=== PATIENT | female | born 1950 | race Caucasian/White ===

== ENCOUNTER → 2023-04-17 | Day surgery (SDC) | payer MEDICARE, OTHER ==
[~2023-04-17] VITALS: Ht 160 cm; Wt 63.5 kg
[~2023-04-17] MED LIST: AMLO10TA80 PO; BALANCED SALT IRRIG SOLN COMB1 500ML OP NR; CYCLOPENTOLATE HCL 1% OPHTH DROPS 2ML RIGHTEYE SCH; FENTANYL CITRATE/PF 50MCG/ML 2ML VIAL ONE; HYALURONATE SODIUM 10 MG/ML 0.55ML SYRINGE IO ONE; LACTATED RINGERS 1,000 ML IV SCH; MIDAZOLAM HCL 2 MG/2 ML VIAL ONE; PHENYLEPHRINE HCL 10% OPHTH DROPS 5ML RIGHTEYE SCH; TROPICAMIDE 1% OPHTH DROPS 15ML RIGHTEYE SCH; TRYPAN BLUE 0.5 ML DISP.SYRIN IO ONE
== END | disposition home or self-care (01) ==
LOC: OR 06:15
PROVIDERS: ATTEND Ophthalmology
DX: H25.89 Other age-related cataract (principal); I10 Essential (primary) hypertension; Z79.899 Other long term (current) drug therapy; Z98.890 Other specified postprocedural states; Z88.8 Allergy status to other drugs, medicaments and biological substances
CPT/HCPCS: 66984; J3010; Q9957; J2250; J3490; A4217; Z7610 ×18; V2632

== ENCOUNTER → 2025-01-20 | Day surgery (SDC) | payer MEDICARE, MEDICAID ==
[~2025-01-20] VITALS: Ht 162.6 cm; Wt 64.9 kg
[~2025-01-20] MED LIST changes: +ACETYLCHOLINE CHLORIDE INTRAOCULAR SOLUTION 1:100 ELECTROLYTE DILUENT IO ONE; +ASPI-1497 PO; -BALANCED SALT IRRIG SOLN COMB1 500ML OP NR; +BALANCED SALT IRRIG SOLN COMB1 500ML OP SCH; +CALC-769 PO; +CETI10CA2 PO; +CYCLOPENTOLATE HCL 1% OPHTH DROPS 2ML LEFTEYE NR; -CYCLOPENTOLATE HCL 1% OPHTH DROPS 2ML RIGHTEYE SCH; +EZET10TA81 PO; +FAMO40TA70 PO; +FENTANYL CITRATE/PF 50MCG/ML 2ML VIAL IV PRN; +FLUT9.9S BOTHNSTRLS; -HYALURONATE SODIUM 10 MG/ML 0.55ML SYRINGE IO ONE; +HYALURONATE SODIUM 10MG/ML 0.55ML SYRINGE IO ONE; -LACTATED RINGERS 1,000 ML IV SCH; +METF-414 PO; -MIDAZOLAM HCL 2 MG/2 ML VIAL ONE; +ONDANSETRON HCL 4MG/2ML INJ IV PRN; +OXYB-52 PO; +PHENYLEPHRINE HCL 10% OPHTH DROPS 5ML LEFTEYE NR; -PHENYLEPHRINE HCL 10% OPHTH DROPS 5ML RIGHTEYE SCH; +ROSU40TA PO; +TROPICAMIDE 1% OPHTH DROPS 15ML LEFTEYE NR; -TROPICAMIDE 1% OPHTH DROPS 15ML RIGHTEYE SCH
[2025-01-20] MEDS: SODIUM CHLORIDE 0.9% 1,000 ML IV SCH (06:44)
== END | disposition home or self-care (01) ==
LOC: OR 05:33
PROVIDERS: ATTEND Ophthalmology
DX: E11.36 Type 2 diabetes mellitus with diabetic cataract (principal); H25.89 Other age-related cataract; I10 Essential (primary) hypertension; E78.5 Hyperlipidemia, unspecified; Z79.82 Long term (current) use of aspirin; Z79.84 Long term (current) use of oral hypoglycemic drugs; Z79.899 Other long term (current) drug therapy; Z98.890 Other specified postprocedural states
CPT/HCPCS: 67005; 66984; 82962; V2632; J3010; J2003; J3490; Q9957